=== PATIENT | female | born 1990 | race Caucasian/White ===

== ENCOUNTER → 2017-05-12 | Outpatient (CLI) | payer OTHER ==
[~2017-05-12] MED LIST: ALBU1AER9; PRENTAB26 PO
[2017-05-12 15:39] LABS: URINE APPEARANCE CLOUDY (CLEAR); URINE BILIRUBIN NEG (NEG); URINE COLOR YELLOW; URINE EPITHELIAL CELL AUTO >30 /lpf (0-5); URINE NITRITE NEG (NEG); URINE PH 7.5 (4.5-7.5); URINE SPECIFIC GRAVITY 1.022 (1.000-1.030); UROBILINOGEN NEG (NEG)
[2017-05-12 15:40] LABS: MANUAL MICROSCOPIC REQUIRED? NO; REVIEW REQ? NO
== END | disposition home or self-care (01) ==
LOC: C.LABSPEC 15:35
PROVIDERS: ATTEND Obstetrics & Gynecology
DX: Z34.90 Encounter for supervision of normal pregnancy, unspecified, unspecified trimester (principal)

== ENCOUNTER → 2017-05-18 | Outpatient (CLI) | payer OTHER ==
[2017-05-18 14:48] LABS: BASO % 0.2 %; BASO ABS # 0.02 K/uL (0-0.2); COMPLETE YES; EOS % 1.4 %; HEMATOCRIT 36.1 % (37-47); IG% 0.2 %; LYMPH % 21.6 %; LYMPH ABS # 1.81 K/uL (1.2-3.4); MEAN CELL VOLUME 88.5 fL (80-100); MEAN CORPUSCULAR HEMOGLOBIN 28.9 pg (25-34); MEAN CORPUSCULAR HGB CONC 32.7 g/dl (32-36); MEAN PLATELET VOLUME 10.7 fL (7.4-10.4); NEUT % 70.6 %; PLATELET COUNT 285 K/uL (130-400); RED BLOOD COUNT 4.08 M/uL (4.2-5.4); WHITE BLOOD COUNT 8.38 K/uL (4.8-10.8)
== END | disposition home or self-care (01) ==
LOC: C.LAB1850 12:45
PROVIDERS: ATTEND Obstetrics & Gynecology
DX: Z34.90 Encounter for supervision of normal pregnancy, unspecified, unspecified trimester (principal)

== ENCOUNTER → 2017-05-18 | Outpatient (CLI) | payer OTHER ==
[2017-05-21 02:02] LABS: CHLAMYDIA TRACH RNA*** NOT DETECTED (NOT DETECTED); GC (NEIS GONORRHOEAE)RNA** NOT DETECTED (NOT DETECTED)
== END | disposition home or self-care (01) ==
LOC: C.LABSPEC 15:58
PROVIDERS: ATTEND Obstetrics & Gynecology
DX: Z34.90 Encounter for supervision of normal pregnancy, unspecified, unspecified trimester (principal)

== ENCOUNTER 2019-04-10 17:09 | Inpatient (IN) ==
[2019-04-10] MEDS ORDERED: OXYTOCIN 30 UNITS/500 ML BAG IV PRN ×2 (17:13→17:49)
[2019-04-10] MEDS ORDERED: LACTATED RINGER'S 1,000 ML IV PRN (17:13)
--- NOTE | 2019-04-10 17:19 | History & Physical Report ---
Date of Service April 10, 2019 Assessment & Plan (1) 39 weeks gestation of : Spontaneous labor, anticipate . History of Present Illness Chief Complaint: Contractions Primary Care Provider: DON Jackson 28yo @ 39 03/28 presents with regular ctx every few minutes, pressure, urge to push. + movement. No vaginal bleeding or leaking of fluid. She has been seen in our office during this sporadically, but has not been seen since 36w. She was planning to deliver at home with a multilith operator, but reported to L&D RN that her multilith operator is on vacation this week so she came to the hospital for delivery instead. Allergies Allergy/AdvReac Type Severity Reaction Status Date / Time No Known Allergies Allergy Unverified 08/19/18 14:14 Home Medications Home Medications Medication Instructions Recorded Confirmed Type PNV cmb#95-ferrous fumarate-FA 1 tab PO DAILY 04/10/19 04/10/19 History [] Patient History Medical History Migraines Colwell teeth removed Social History Feels Safe at Home: Yes Smoking Status: Never smoker Physical Exam Physical Exam: Gen: AAOx3 NAD CV: RRR L: CTAB Abd: soft, gravid Ext: no edema SVE: 9cm per RN FHT Cat 1
[2019-04-10] MEDS ORDERED: OXYTOCIN 30 UNITS/500ML NSS ONE (17:28)
[2019-04-10 17:33] LABS: Hemoglobin 12.6 g/dL (12.0-16.0); Mean Corpuscular Volume 94.4 fL (80-100); Platelet Count 199 K/uL (130-400); RDW Coefficient of Variation 14.8 % (11.5-14.5); RDW Standard Deviation 50.3 fL (36.4-46.3); Red Blood Count 3.92 M/uL (4.2-5.4); White Blood Count 5.36 K/uL (4.8-10.8)
[2019-04-10] MEDS ORDERED: BISACODYL 10 MG SUPP PR PRN (17:49)
[2019-04-10] MEDS ORDERED: OXYCODONE/ACETAMINOPHEN 5mg/325mg TAB PO PRN (17:49)
[2019-04-10] MEDS ORDERED: BENZOCAINE 20% AER SPR 82.5 GM CAN EXT PRN (17:49)
[2019-04-10] MEDS ORDERED: SUPERCREAM 0.870% 15 GM JAR EXT PRN (17:49)
[2019-04-10] MEDS ORDERED: HYDROCORTISONE ACETATE 25 MG SUPP PR PRN (17:49)
[2019-04-10] MEDS ORDERED: DIPHTHERIA/TETANUS/PERTUSSIS 0.5 ML SYR/VIAL IM ONE (17:49)
[2019-04-10] MEDS ORDERED: ACETAMINOPHEN 325 MG TAB PO PRN (17:49)
--- NOTE | 2019-04-10 17:52 | Procedure Note ---
Vaginal Delivery Summary Date of Service April 10, 2019 Vaginal Delivery Summary Vaginal Delivery Summary: Pre-delivery diagnoses: 28yo @ 39 5/7, spontaneous labor, inconsistent care Post-delivery diagnoses: same Procedure: Spontaneous Vaginal Delivery Surgeon: Perla Daniels DO Complications: none Findings: Viable . Apgars: 8/9. Weight pending, please see nursery records Estimated blood loss: 300ml Description of delivery: The patient presented in spontaneous labor, feeling urge to push. Exam on arrival was 9cm. She quickly progressed to complete without anesthesia. AROM performed for clear fluid. She then pushed once. She spontaneously vaginally delivered a viable female from the cephalic presentation. The head delivered in REBEKAH position. No nuchal cord noted. The anterior shoulder delivered, followed by the posterior shoulder, followed by the body. The baby was placed on mother's abdomen and a spontaneous cry was heard. Delayed cord clamping was employed, and the cord was doubly clamped and cut. Cord blood was obtained. The placenta was delivered spontaneously intact with a 3-vessel cord. The uterus and vagina were swept of clots and debris. IV pitocin was given. The uterus became firm. The cervix, vagina, and perineum were inspected and no lacerations were noted. Small perineal abrasion made hemostatic with direct pressure. Excellent hemostasis was observed. The mother and baby are recovering in stable and good condition in the room. Sponge and instrument counts were correct x 2. Perla Daniels DO FACOOG
[2019-04-10 18:32] LABS: Mean Corpuscular Hgb Conc 34.1 g/dL (32-36)
[2019-04-10] MEDS: DOCUSATE SODIUM 100 MG CAP PO SCH (19:54)
[2019-04-10] MEDS: IBUPROFEN 600 MG TAB PO PRN (23:29)
[2019-04-11 07:29] LABS: Hematocrit (blood only) 35.1 % (37-47); Hemoglobin 11.6 g/dL (12.0-16.0)
--- NOTE | 2019-04-11 07:48 | Obstetrical Progress Note ---
Date of Service <James Xiao MD - Last Filed: 04/11/19 07:48> April 11, 2019 Assessment & Plan <James Xiao MD - Last Filed: 04/11/19 07:48> (1) (normal spontaneous vaginal delivery): 28 year old Vital Signs Reviewed and WNL Hemoglobin 12.6 Blood type O+, GBS -, Rubella Immune Patient doing very well clinically, eating, walking, passing gas, and using restroom without difficulty Encouraged continued ambulation and breast feeding Went over all discharge instructions Subjective <James Xiao MD - Last Filed: 04/11/19 07:48> Ambulation: ambulating normally Voiding: no voiding problems Passing Gas:: Yes Diet Tolerance:: regular diet Lochia:: Small Feeding Type:: breast feeding Current Pain Level(1-10): 0 Ms. Delgadillo is doing very well, no complaints and ready to return home. She did ask me about medicine for a yeast infection Constitutional: no fever and no chills Respiratory: no cough and no dyspnea Cardiovascular: no chest pain, no dyspnea and no palpitations Gastrointestinal: no abdominal pain, no nausea and no vomiting Physical Exam <James Xiao MD - Last Filed: 04/11/19 07:48> Vital Signs (Past 24 Hours) Last Vital Signs Temp 36.6 C 04/11/19 03:20 Pulse 67 04/11/19 03:20 Resp 14 04/11/19 03:20 BP 122/75 04/11/19 03:20 Pulse Ox 98 04/11/19 03:20 Constitutional well developed, well nourished, cooperative and comfortable; no acute distress Respiratory normal respiratory effort, lungs clear to auscultation Cardiovascular Rate/Rhythm: regular rate and regular rhythm Heart Sounds: no click, no gallop, no murmur and no cardiac rub Extremities: no calf tenderness Gastrointestinal (Abdomen) Percussion/Palpation: abdomen soft; abdomen nontender Genitourinary OB Exam Abdomen: + fundal height Fundus: + firm and + relation to umbilicus (Just under umbilicus); not tender <Perla Daniels DO - Last Filed: 04/11/19 07:56> Co-Signing Physician Notes Resident Physician Supervision Note: I was present with Dr. Xiao during the history and exam. I discussed the case with the resident and agree with the findings and plan as documented in the note. Any exceptions or clarifications are listed here: PPD#1 doing well. Desires discharge. Instructions reviewed. RTO 6wPP Documented By: Perla Daniels, Resident Activity Tracking <James Xiao MD - Last Filed: 04/11/19 07:48> Resident Involvement: Resident Care Provided Care Provided: Adult Hospital Medicine
[2019-04-11] MEDS: DOCUSATE SODIUM 100 MG CAP PO SCH (08:13)
[2019-04-11] MEDS ORDERED: PRENATAL VITAMIN 1 TAB PO SCH (09:00)
[2019-04-11] MEDS: IBUPROFEN 600 MG TAB PO PRN (11:09)
[2019-04-11] MEDS ORDERED: BISACODYL 5 MG TABEC PO SCH (20:00)
== END 2019-04-11 19:30 | disposition home or self-care (01) | DRG 807 ==
LOC: 4S1 17:09 → 4S2 19:53